=== PATIENT | female | born 1945 | race Caucasian/White ===

== ENCOUNTER 2017-01-28 12:20 | Inpatient (IN) | payer OTHER, MEDICARE ==
[~2017-01-28] VITALS: Ht 152.4 cm; Wt 96.1 kg
[~2017-01-28 12:20] MED LIST: AMBIEN10 M1 PO; AMBIEN10 MG PO; AMLODIPINE BESYL5 MG PO; ASPIRIN E.C.81 M1 PO; ASPIRIN81 M2 PO; AUGMENTIN875 MG PO; AVAPRO75 MG PO; Ambien PO; Amoxicillin PO; Aranesp SC; BUMEX0.5 MG PO; BUMEX1 MG PO; BYSTOLIC10 MG PO; BYSTOLIC5 MG PO; Bactrim,Septra DS 80 PO; CARBAMAZEPINE200 M2 PO; CARDIZEM CD,CA120 MG PO; COLACE100 MG PO; COREG25 M1 PO; Colace PO; DOCUSATE SODIU100 MG PO; Heparin Sodium SC; INVANZ1 GM IV; KEPPRA1000 MG PO; KEPPRA500 MG PO; Keppra; LANTUS 3 M100 UNITS/ SC; LANTUS100 UNIT/1 SQ; LASIX20 MG PO; LEVOTHROID112 MCG PO; LEXAPRO10 MG PO; LOSARTAN POTAS100 MG PO; LYRICA50 MG PO; Lantus 3 ml Solostar SC; Levaquin PO; Levothroid,Synthroid PO; Maalox, Mylanta PO; Milk Of Magnesia,MOM PO; NORVASC5 MG PO; NOVOLIN,HU100 UNITS/ SC; NOVOLOG MI100 UNIT/2 SC; NOVOLOG MI100 UNIT/M PO; NOVOLOG PE100 UNITS/ SC; Nitrostat,NitroQuick SL; PANTOPRAZOLE SO40 MG PO; PERCOCET 5/31 TABLET PO; PRAVACHOL40 MG PO; PRINIVIL20 MG PO; ROCALTROL0.25 MCG PO; SYNTHROID112 MCG PO; SYNTHROID25 MCG PO; Sodium Bicarbonate PO; TEGRETOL-XR,CA200 MG PO; TEGRETOL200 MG PO; TYLENOL REGULA325 MG PO; ULTRAM50 MG PO; Vicodin,Lortab 5/500 PO; Vitamin D, Drisdol PO; XANAX0.25 MG PO; Xanax PO; ZESTRIL,PRINIVI20 MG PO
[2017-01-28 12:56] LABS: POINT-OF-CARE METER ID UU13113747
[2017-01-28] MEDS ORDERED: ZANTAC150 MG PO (14:40)
[2017-01-28 14:47] LABS: HEMATOCRIT 35.1 % (36.0-46.0); MCH 31.4 PG (29.0-34.0); MCHC 31.6 G/DL (30.0-36.0); MCV 99.4 FL (83-99); MEAN PLAT.VOLUME 11.8 uM^3 (9.5-12.4); PLATELET COUNT 127 K/uL (156-360); RBC DIS.WIDTH-SD 49.9 % (39-53); RED BLOOD COUNT 3.53 M/uL (3.80-5.20); WHITE BLOOD COUNT 19.5 K/uL (4.1-10.2)
[2017-01-28 14:54] LABS: INTER. NORMALIZED RATIO 1.1; PROTHROMBIN TIME 12.3 SEC (10.2-12.9)
[2017-01-28 14:56] LABS: CHLORIDE 109 mEq/L (99-109); POTASSIUM 4.9 mEq/L (3.7-5.4); SODIUM 143 mEq/L (136-147)
[2017-01-28 14:57] LABS: MAGNESIUM 2.1 mg/dL (1.3-2.7); PTT 24.6 SEC (25-37)
[2017-01-28 14:59] LABS: GLUCOSE 374 mg/dL (70-99)
[2017-01-28 15:00] LABS: ANION GAP 14 MEQ/L (2-14)
[2017-01-28 15:01] LABS: TOTAL BILIRUBIN 0.3 mg/dL (0.0-1.0)
[2017-01-28 15:02] LABS: ALKALINE PHOSPHATASE 71 IU/L (3-129)
[2017-01-28 15:03] LABS: GFR ESTIMATE (CALCULATED) 11 mL/min/
[2017-01-28 15:04] LABS: UREA NITROGEN (BUN) 58 mg/dL (9-23)
[2017-01-28 15:06] LABS: CREATINE KINASE 297 IU/L (1-294); LIPASE 6 U/L (1.0-51.0); TOTAL CK 297 IU/L (1-294)
[2017-01-28 15:08] LABS: TROP-I INTERPRETATION NEGATIVE; TROPONIN-I 0.03 ng/mL (0.0-0.30)
[2017-01-28 15:13] LABS: CK-MB 2.9 ng/mL (0.0-4.9)
[2017-01-28 15:53] LABS: ABS NEUTROPHIL COUNT 17.3; ANISOCYTOSIS 1+; BAND NEUTROPHILS 26.6 % (0-8.0); EOSINOPHIL ABS CT 0; HEMATOLOGY COMMENT 1 SN; LYMPHOCYTES 0.9 % (15.0-45.0); METAMYELOCYTES 3.5 %; MICROCYTOSIS 1+; MYELOCYTES 1.8 %; OVALOCYTES 1+; PLAT.SUFFICIENCY DECREASED; POLYCHROMASIA 1+; SEG.NEUTROPHILS 61.9 % (46.0-76.0)
[2017-01-28 15:55] LABS: SAMPLE HEMOLYSIS CHECK 0; SAMPLE ICTERIC CHECK 0; SAMPLE LIPEMIA CHECK 0
[2017-01-28 16:21] LABS: ADD MIUA? YES; BILIRUBIN NEGATIVE; BLOOD LARGE; COLOR AMBER ((YELLOW)); GLUCOSE (STRIP) 150; KETONES NEGATIVE; LEUKOCYTES MODERATE; NITRITE NEGATIVE; PROTEIN (STRIP) 100; SPECIFIC GRAVITY 1.019 (1.000-1.030); UROBILINOGEN 0.2 MG/DL (0.2-1.0)
[2017-01-28 17:41] LABS: RED BLOOD CELLS TNTC /HPF (0-5)
[2017-01-28 17:42] LABS: UCUL ADDED? YES
[2017-01-28 20:38] VITALS: BP 133/56
[2017-01-28 22:14] LABS: POINT-OF-CARE METER ID UU14162508
[2017-01-28 23:31] VITALS: BP 131/60
[2017-01-29 03:08] VITALS: BP 139/58
[2017-01-29 06:36] LABS: HEMATOCRIT 28.7 % (36.0-46.0); MCH 31.5 PG (29.0-34.0); MCHC 32.1 G/DL (30.0-36.0); MCV 98.3 FL (83-99); MEAN PLAT.VOLUME 11.8 uM^3 (9.5-12.4); PLATELET COUNT 91 K/uL (156-360); RBC DIS.WIDTH-CV 14.3 % (11.8-14.6); RBC DIS.WIDTH-SD 51.6 % (39-53); RED BLOOD COUNT 2.92 M/uL (3.80-5.20); WHITE BLOOD COUNT 15.9 K/uL (4.1-10.2)
[2017-01-29 06:46] LABS: POINT-OF-CARE METER ID UU14208750
[2017-01-29 07:04] LABS: ANION GAP 9 MEQ/L (2-14); CHLORIDE 116 MEQ/L (99-109); POTASSIUM 4.4 MEQ/L (3.7-5.4); SAMPLE HEMOLYSIS CHECK 0; SAMPLE ICTERIC CHECK 0; SAMPLE LIPEMIA CHECK 0; SODIUM 144 MEQ/L (136-147); UREA NITROGEN (BUN) 53 mg/dL (9-23)
[2017-01-29 07:08] LABS: GFR ESTIMATE (CALCULATED) 16 mL/min/; GLUCOSE 142 mg/dL (70-99)
[2017-01-29 07:45] VITALS: BP 124/64
[2017-01-29 11:50] VITALS: BP 125/63
[2017-01-29 12:01] LABS: POINT-OF-CARE METER ID UU14314084
[2017-01-29 15:45] VITALS: BP 126/62
[2017-01-29 16:48] LABS: POINT-OF-CARE METER ID UU14314084
[2017-01-29 20:12] VITALS: BP 146/82
[2017-01-29 21:50] LABS: POINT-OF-CARE METER ID UU14314084
[2017-01-30 00:49] VITALS: BP 142/64
[2017-01-30 03:58] VITALS: BP 142/62
[2017-01-30 06:24] LABS: HEMATOCRIT 27.5 % (36.0-46.0); MCH 31.8 PG (29.0-34.0); MCV 99.3 FL (83-99); MEAN PLAT.VOLUME 12.6 uM^3 (9.5-12.4); PLATELET COUNT 81 K/uL (156-360); RBC DIS.WIDTH-SD 50.9 % (39-53); RED BLOOD COUNT 2.77 M/uL (3.80-5.20); WHITE BLOOD COUNT 12.8 K/uL (4.1-10.2)
[2017-01-30 06:43] LABS: POINT-OF-CARE METER ID UU14314084
[2017-01-30 06:59] LABS: ANION GAP 11 MEQ/L (2-14); CHLORIDE 115 MEQ/L (99-109); GFR ESTIMATE (CALCULATED) 17 mL/min/; GLUCOSE 132 mg/dL (70-99); SAMPLE HEMOLYSIS CHECK 0; SAMPLE ICTERIC CHECK 0; SAMPLE LIPEMIA CHECK 0; SODIUM 143 MEQ/L (136-147); UREA NITROGEN (BUN) 51 mg/dL (9-23)
[2017-01-30 07:45] VITALS: BP 140/78
[2017-01-30 11:50] VITALS: BP 138/74
[2017-01-30 12:25] LABS: POINT-OF-CARE METER ID UU14314084; POINT-OF-CARE USER ID PUTDRM
[2017-01-30 15:30] VITALS: BP 137/94
[2017-01-30 16:56] LABS: POINT-OF-CARE METER ID UU14314084; POINT-OF-CARE USER ID PUTDRM
[2017-01-30 20:40] VITALS: BP 141/60
[2017-01-30 21:44] LABS: POINT-OF-CARE METER ID UU14314084
[2017-01-31] VITALS (7 sets, daily range): BP systolic 130–148; BP diastolic 59–82
[2017-01-31 06:32] LABS: POINT-OF-CARE METER ID UU14162508
[2017-01-31 08:34] LABS: HEMATOCRIT 27.7 % (36.0-46.0); MCH 31.8 PG (29.0-34.0); MCHC 31.8 G/DL (30.0-36.0); MEAN PLAT.VOLUME 12.4 uM^3 (9.5-12.4); PLATELET COUNT 84 K/uL (156-360); RBC DIS.WIDTH-CV 13.7 % (11.8-14.6); RBC DIS.WIDTH-SD 50.4 % (39-53); RED BLOOD COUNT 2.77 M/uL (3.80-5.20); WHITE BLOOD COUNT 11.4 K/uL (4.1-10.2)
[2017-01-31 08:55] LABS: ANION GAP 10 MEQ/L (2-14); CHLORIDE 117 MEQ/L (99-109); GFR ESTIMATE (CALCULATED) 18 mL/min/; GLUCOSE 100 mg/dL (70-99); POTASSIUM 4.2 MEQ/L (3.7-5.4); SAMPLE HEMOLYSIS CHECK 0; SAMPLE ICTERIC CHECK 0; SAMPLE LIPEMIA CHECK 0; SODIUM 147 MEQ/L (136-147); UREA NITROGEN (BUN) 44 mg/dL (9-23)
[2017-01-31 09:54] LABS: IRON 28 MCG/DL (35-150)
[2017-01-31 10:11] LABS: FERRITIN 161 NG/ML (10-291)
[2017-01-31 12:28] LABS: POINT-OF-CARE METER ID UU14162508
[2017-01-31 17:15] LABS: POINT-OF-CARE METER ID UU14162508
[2017-01-31 21:45] LABS: POINT-OF-CARE METER ID UU14162508
[2017-02-01 03:13] VITALS: BP 115/65
[2017-02-01 07:00] LABS: POINT-OF-CARE METER ID UU14162508
[2017-02-01 08:25] VITALS: BP 180/78
[2017-02-01 09:04] LABS: BASOPHIL COUNT 0.1 K/uL (0-0.1); EOSINOPHIL (%) 3.4 % (0-5); EOSINOPHIL COUNT 0.4 K/uL (0-0.3); HEMATOCRIT 31.1 % (36.0-46.0); IMMATURE GRANULOCYTE (%) 1.7 % (0.0-0.7); IMMATURE GRANULOCYTE COUNT 0.2 K/uL; INSTRUMENT ABS NEUTROPHIL CT 9.3 K/uL; LYMPHOCYTE COUNT 1.2 K/uL (1.0-2.8); MCHC 31.2 G/DL (30.0-36.0); MCV 99.4 FL (83-99); MEAN PLAT.VOLUME 11.6 uM^3 (9.5-12.4); MONOCYTE (%) 7.3 % (3-12); MONOCYTE COUNT 0.9 K/uL (0-0.8); NEUTROPHIL (%) 77.4 % (45-76); NEUTROPHIL COUNT 9.3 K/uL (1.8-6.4); NRBC (%) 0.2 /100 WBC (0-0); PLATELET COUNT 98 K/uL (156-360); RBC DIS.WIDTH-CV 13.8 % (11.8-14.6); RBC DIS.WIDTH-SD 50.3 % (39-53); RED BLOOD COUNT 3.13 M/uL (3.80-5.20); WHITE BLOOD COUNT 12.1 K/uL (4.1-10.2)
[2017-02-01 09:26] LABS: ANION GAP 12 MEQ/L (2-14); CHLORIDE 112 MEQ/L (99-109); GFR ESTIMATE (CALCULATED) 21 mL/min/; GLUCOSE 145 mg/dL (70-99); POTASSIUM 4.2 MEQ/L (3.7-5.4); SAMPLE HEMOLYSIS CHECK 0; SAMPLE ICTERIC CHECK 0; SAMPLE LIPEMIA CHECK 0; SODIUM 143 MEQ/L (136-147); UREA NITROGEN (BUN) 37 mg/dL (9-23)
[2017-02-01 12:16] LABS: POINT-OF-CARE METER ID UU14162508
[2017-02-01 16:26] LABS: POINT-OF-CARE METER ID UU14314084
[2017-02-01 17:23] VITALS: BP 176/79
[2017-02-01 20:17] VITALS: BP 134/62
[2017-02-01 21:39] LABS: POINT-OF-CARE METER ID UU14314084
[2017-02-02 00:29] VITALS: BP 122/54
[2017-02-02 03:39] VITALS: BP 126/54
[2017-02-02 06:29] LABS: POINT-OF-CARE METER ID UU14314084
[2017-02-02 07:47] VITALS: BP 142/88
[2017-02-02 07:51] LABS: EOSINOPHIL (%) 3.1 % (0-5); EOSINOPHIL COUNT 0.3 K/uL (0-0.3); HEMATOCRIT 28.1 % (36.0-46.0); IMMATURE GRANULOCYTE (%) 3.5 % (0.0-0.7); IMMATURE GRANULOCYTE COUNT 0.3 K/uL; INSTRUMENT ABS NEUTROPHIL CT 5.7 K/uL; LYMPHOCYTE COUNT 1.4 K/uL (1.0-2.8); MCH 31.1 PG (29.0-34.0); MCHC 31.7 G/DL (30.0-36.0); MCV 98.3 FL (83-99); MEAN PLAT.VOLUME 11.7 uM^3 (9.5-12.4); MONOCYTE (%) 12.1 % (3-12); MONOCYTE COUNT 1.1 K/uL (0-0.8); NEUTROPHIL (%) 64.6 % (45-76); NEUTROPHIL COUNT 5.7 K/uL (1.8-6.4); NRBC (%) 0.3 /100 WBC (0-0); PLATELET COUNT 108 K/uL (156-360); RBC DIS.WIDTH-CV 13.6 % (11.8-14.6); RBC DIS.WIDTH-SD 48.8 % (39-53); RED BLOOD COUNT 2.86 M/uL (3.80-5.20); WHITE BLOOD COUNT 8.9 K/uL (4.1-10.2)
[2017-02-02 08:15] LABS: ANION GAP 10 MEQ/L (2-14); CHLORIDE 116 MEQ/L (99-109); GFR ESTIMATE (CALCULATED) 22 mL/min/; GLUCOSE 159 mg/dL (70-99); POTASSIUM 4.6 MEQ/L (3.7-5.4); SAMPLE HEMOLYSIS CHECK 0; SAMPLE ICTERIC CHECK 0; SAMPLE LIPEMIA CHECK 0; SODIUM 142 MEQ/L (136-147); UREA NITROGEN (BUN) 29 mg/dL (9-23)
[2017-02-02 11:27] LABS: POINT-OF-CARE METER ID UU14162508
[2017-02-02] MEDS ORDERED: FUROSEMIDE20 MG PO (14:32)
[2017-02-02] MEDS ORDERED: SOD CITRATE-CI473 ML PO (14:32)
[2017-02-02] MEDS ORDERED: ACIDOPHILUS LA1 EACH PO (14:32)
[2017-02-02] MEDS ORDERED: FERROUS SULFAT325 MG PO (14:32)
[2017-02-02] MEDS ORDERED: CEFTRIAXONE2 G1 IV (14:49)
[2017-02-02 16:42] LABS: POINT-OF-CARE METER ID UU14162508
== END 2017-02-02 17:29 | DRG 872 ==
LOC: EME → EDBD 12:20 → EME 12:20 → 2EAST 15:46 → EDOF 15:46 → 2EAST 15:46 → ENRESERV 15:47 → 2EAST 20:12 → ENPENDDIS 02-02 17:30
PROVIDERS: Emergency Medicine; Hospitalist; Internal Medicine; Internal Medicine Nephrology
DX: A41.51 Sepsis due to Escherichia coli [E. coli] (principal); R65.20 Severe sepsis without septic shock; N13.6 Pyonephrosis; N17.9 Acute kidney failure, unspecified; E87.2 Acidosis; E11.65 Type 2 diabetes mellitus with hyperglycemia; I12.9 Hypertensive chronic kidney disease with stage 1 through stage 4 chronic kidney disease, or unspecified chronic kidney disease; E11.22 Type 2 diabetes mellitus with diabetic chronic kidney disease; N18.4 Chronic kidney disease, stage 4 (severe); D69.6 Thrombocytopenia, unspecified; E03.9 Hypothyroidism, unspecified; G40.909 Epilepsy, unspecified, not intractable, without status epilepticus; E78.5 Hyperlipidemia, unspecified; F03.90 Unspecified dementia, unspecified severity, without behavioral disturbance, psychotic disturbance, mood disturbance, and anxiety; J45.909 Unspecified asthma, uncomplicated; K21.9 Gastro-esophageal reflux disease without esophagitis; D50.9 Iron deficiency anemia, unspecified; R31.0 Gross hematuria; I87.2 Venous insufficiency (chronic) (peripheral); R32 Unspecified urinary incontinence; R33.9 Retention of urine, unspecified; F17.200 Nicotine dependence, unspecified, uncomplicated; Z66 Do not resuscitate; Z86.73 Personal history of transient ischemic attack (TIA), and cerebral infarction without residual deficits; Z86.711 Personal history of pulmonary embolism; Z79.01 Long term (current) use of anticoagulants; Z23 Encounter for immunization; Z79.82 Long term (current) use of aspirin; Z79.4 Long term (current) use of insulin
CPT/HCPCS: 36415; 70450; 71010; 74176; 80048; 80053; 80069; 81003; 82010; 82043; 82272; 82550; 82553; 82570; 82607; 82728; 82746; 82948; 83540; 83540 GA; 83605; 83690; 83735; 83880; 84439; 84443; 84443 GA; 84466; 84466 GA; 84484; 85025; 85027; 85610; 85730; 87040; 87077; 87086; 87186; 87801; 90686; 93005; 94799; 97530 GP; 99202; 99281; 99284; C1753; J0696; J1644; J1815; J2405; J2543; J3370; J7030; J7050; J7120; S0028

== ENCOUNTER 2017-09-13 18:00 | Inpatient (IN) | payer OTHER, MEDICARE ==
[~2017-09-13] VITALS: Ht 149.9 cm; Wt 93.1 kg
[~2017-09-13 18:00] MED LIST changes: +ACIDOPHILUS LA1 EACH PO; +CEFTRIAXONE2 G1 IV; +FERROUS SULFAT325 MG PO; +FUROSEMIDE20 MG PO; +SOD CITRATE-CI473 ML PO; +ZANTAC150 MG PO
[2017-09-13 19:46] LABS: BASOPHIL (%) 0.2 % (0-1); EOSINOPHIL (%) 0.1 % (0-5); HEMATOCRIT 30.3 % (36.0-46.0); HEMOGLOBIN 9.9 G/DL (11.9-15.5); IMMATURE GRANULOCYTE (%) 0.7 % (0.0-0.7); LYMPHOCYTE (%) 12.4 % (15-42); LYMPHOCYTE COUNT 1.8 K/uL (1.0-2.8); MCH 31.5 PG (29.0-34.0); MCHC 32.7 G/DL (30.0-36.0); MCV 96.5 FL (83-99); MONOCYTE (%) 7.8 % (3-12); MONOCYTE COUNT 1.2 K/uL (0-0.8); NEUTROPHIL (%) 78.8 % (45-76); NEUTROPHIL COUNT 11.7 K/uL (1.8-6.4); PLATELET COUNT 173 K/uL (156-360); RBC DIS.WIDTH-CV 13.9 % (11.8-14.6); RBC DIS.WIDTH-SD 48.8 % (39-53); RED BLOOD COUNT 3.14 M/uL (3.80-5.20); WHITE BLOOD COUNT 14.9 K/uL (4.1-10.2)
[2017-09-13 19:55] LABS: INTER. NORMALIZED RATIO 1.2
[2017-09-13 19:56] LABS: ALBUMIN 3.3 g/dL (3.2-4.8); CHLORIDE 108 mEq/L (99-109); POTASSIUM 4.8 mEq/L (3.7-5.4); SODIUM 139 mEq/L (136-147)
[2017-09-13 19:58] LABS: GLUCOSE 184 mg/dL (70-99); PTT 23.1 SEC (25-37); TOTAL PROTEIN 6.7 g/dL (6.4-8.3)
[2017-09-13 20:00] LABS: TOTAL BILIRUBIN 0.4 mg/dL (0.0-1.0)
[2017-09-13 20:02] LABS: CREATININE 3.8 mg/dL (0.6-1.3); GFR ESTIMATE (CALCULATED) 12 mL/min/
[2017-09-13 20:03] LABS: AST (GOT) 84 IU/L (2-34)
[2017-09-13 20:11] LABS: TROP-I INTERPRETATION POSITIVE
[2017-09-13 20:12] LABS: TROPONIN-I 43.82 ng/mL (0.0-0.30)
[2017-09-13 20:15] LABS: ALKALINE PHOSPHATASE 103 IU/L (3-129)
[2017-09-13 20:16] LABS: UREA NITROGEN (BUN) 59 mg/dL (9-23)
[2017-09-13 20:18] LABS: ALT (GPT) 38 IU/L (3-49); LIPASE 9 U/L (1.0-51.0)
[2017-09-13] MEDS ORDERED: BUMEX0.5 MG PO (21:18)
[2017-09-13] MEDS ORDERED: COZAAR100 MG PO (21:18)
[2017-09-14 01:47] VITALS: BP 110/53
[2017-09-14 12:35] VITALS: BP 00/00
== END 2017-09-14 13:04 | disposition hospice, home (50) | DRG 871 ==
LOC: EME 18:00 → EDOF 09-14 00:54 → 5EAST 09-14 00:54 → ENRESERV 09-14 00:56 → 5EAST 09-14 01:40 → ENPENDDIS 09-14 12:45 → 5EAST 09-14 13:04
PROVIDERS: Emergency Medicine
DX: A41.9 Sepsis, unspecified organism (principal); K52.9 Noninfective gastroenteritis and colitis, unspecified; I21.4 Non-ST elevation (NSTEMI) myocardial infarction; N17.9 Acute kidney failure, unspecified; R65.20 Severe sepsis without septic shock; I12.9 Hypertensive chronic kidney disease with stage 1 through stage 4 chronic kidney disease, or unspecified chronic kidney disease; N18.4 Chronic kidney disease, stage 4 (severe); E11.22 Type 2 diabetes mellitus with diabetic chronic kidney disease; E78.5 Hyperlipidemia, unspecified; E03.9 Hypothyroidism, unspecified; I25.10 Atherosclerotic heart disease of native coronary artery without angina pectoris; K21.9 Gastro-esophageal reflux disease without esophagitis; Z66 Do not resuscitate; I69.151 Hemiplegia and hemiparesis following nontraumatic intracerebral hemorrhage affecting right dominant side; I69.128 Other speech and language deficits following nontraumatic intracerebral hemorrhage; Z87.891 Personal history of nicotine dependence; Z79.82 Long term (current) use of aspirin; Z79.4 Long term (current) use of insulin; Z86.711 Personal history of pulmonary embolism
CPT/HCPCS: 70450; 71045; 71250; 74176; 80053; 81003; 83605; 83690; 84484; 85025; 85610; 85730; 87040; 87493; 93005; 99281; 99285; J2060; J2270; J2405; J2543; J7030